=== PATIENT | female | born 1950 | race American Indian/Alaskan Native ===

== ENCOUNTER 2016-09-16 06:29 | Day surgery (SDC) | payer MEDICARE, OTHER ==
[2016-09-16] MEDS ORDERED: ECOTRIN PO ONE ×2 (06:57→07:03)
[2016-09-16] MEDS ORDERED: NACL 0.9% 500 ML 500 ML IV SCH (07:00)
[2016-09-16] MEDS ORDERED: NACL 0.9% 500 ML 500 ML ONE (07:01)
[2016-09-16 07:46] LABS: Basophils % (Auto) 0.3 % (0.0-1.8); Hematocrit 42.3 % (30.3-42.9); Mean Corpuscular HGB Conc 33 % (30-34); Mean Corpuscular Hemoglobin 28 pg (28-32); Mean Corpuscular Volume 85 fl (79-97); Platelet Count 268 K/mm3 (140-440); Red Blood Count 4.98 M/mm3 (3.65-5.03); Red Cell Distribution Width 13.5 % (13.2-15.2); White Blood Count 6.7 K/mm3 (4.5-11.0)
[2016-09-16 07:56] LABS: INR 0.91 (0.87-1.13)
[2016-09-16 07:57] LABS: Anion Gap 16 mmol/L; BUN/Creatinine Ratio 33.33; Blood Urea Nitrogen 20 mg/dL (7-17); Calcium 9.8 mg/dL (8.4-10.2); Carbon Dioxide 26 mmol/L (22-30); Chloride 100.1 mmol/L (98-107); Glucose 147 mg/dL (65-100); Potassium 4.3 mmol/L (3.6-5.0); Sodium 138 mmol/L (137-145)
[2016-09-16] MEDS ORDERED: HEPARIN/NS 5000 UNIT/500ML(CATH LAB) 1,000 ML IR ONE (08:16)
[2016-09-16] MEDS ORDERED: XYLOCAINE 2% INFILTRATI ONE (08:16)
[2016-09-16] MEDS: CALAN ONE ×2 (08:58→09:05)
[2016-09-16] MEDS: HEPARIN 10,000 UNITS/10 ML ONE ×2 (08:59→09:05)
[2016-09-16] MEDS: SUBLIMAZE ONE ×2 (08:59→09:12)
[2016-09-16] MEDS: VERSED ONE ×2 (08:59→09:12)
--- NOTE | 2016-09-16 10:06 | Cardiac Catherization Report ---
CARDIAC CATHETERIZATION CLINICAL INFORMATION: The patient is a 66-year-old -[place] female with history of bilateral pulmonary artery branch stenting in 2010, also left upper pulmonary vein stenting in 2012 for stenosis, is scheduled for cardiac catheterization because of persistent chest pain in spite of negative nuclear imaging. The patient is aware of the procedure, potential complications, and alternatives of therapy available. DESCRIPTION OF PROCEDURE: The patient was brought to the catheterization laboratory in a fasting condition. The right wrist area and forearm thoroughly cleansed with Betadine solution and sterile drapes were applied. Local anesthesia was achieved using 2% Xylocaine. Right radial artery puncture was made using 21-gauge arterial puncture needle. Subsequently, 5-Belarusian sheath was introduced. Received 5 mg of intra-arterial verapamil and 3000 units of intravenous heparin. A 5-Belarusian multipurpose catheter was used to obtain the angiograms of the right coronary artery and left ventriculogram done in VALENCIA projection using hand injection. Subsequently, 5-Belarusian TIG catheter was used for obtaining the angiograms of the left coronary artery. At the end of the procedure, catheter and sheaths removed. Good hemostasis was achieved. No untoward complications were noted. The patient tolerated the procedure well. Good hemostasis was achieved with pressure bandage. Following findings were noted. HEMODYNAMICS: Opening aortic pressure 141/70, left ventricular pressure 141/17, no gradient across the aortic valve. Estimated ejection fraction 65%. Left ventriculogram done in VALENCIA projection using hand injection showed normal sized left ventricle with normal contractility. Mitral regurgitation could not be evaluated because of limited amount of dye. Right coronary artery dominant vessel arises normally from right coronary cusp. Angiographically smooth and normal. Left coronary artery arises normally from left coronary cusp. Left main long, smooth and normal. LAD, which curves around the apex and its branches and circumflex artery nondominant vessel and its branches are angiographically smooth and normal. FINAL IMPRESSION: Normal sized left ventricle with normal contractility, essentially normal coronary angiography. At this time, etiology of her chest pain is not clear. Stents were noted in the right pulmonary artery and left pulmonary artery branches and also left upper pulmonary vein area. The patient tolerated the procedure well. No untoward complications noted. The patient will be continued on risk factor modification. Findings were explained to the patient and family. [facility]# [id number] EBER/JARVIS ARNOLD
--- NOTE | 2016-09-16 10:57 | Short Stay Summary ---
Short Stay Documentation Date of service: 09/16/16 - History H&P: obtained from office - Allergies and Medications Current Medications: Allergies acetaminophen [From Lortab] Allergy (Verified 02/21/15 11:14) Itching codeine Allergy (Verified 02/19/15 04:27) Itching diphenhydramine HCl [From Benadryl] Allergy (Verified 02/19/15 04:27) Itching hydrocodone bitartrate [From Lortab] Allergy (Verified 02/21/15 11:14) Itching Penicillins Allergy (Verified 02/19/15 04:27) Itching Sulfa (Sulfonamide Antibiotics) Allergy (Verified 02/19/15 04:27) Itching benzonatate Adverse Reaction (Unverified 09/16/16 06:31) Itching hydromorphone Adverse Reaction (Verified 02/20/15 14:31) Itching IV CONTRAST DYE Allergy (Uncoded 02/19/15 01:07) Itching Home Medications Medication Instructions Recorded Confirmed Last Taken Type Alendronate Sodium [Fosamax] 70 mg PO Th tablet 09/29/15 09/16/16 09/10/16 Rx Clopidogrel [Plavix] 75 mg PO DAILY tablet 09/29/15 09/16/16 09/16/16 06:30 Rx Hydrocortisone 0.5% 1 applic TP BID tube 09/29/15 09/16/16 09/15/16 Rx [Hydrocortisone 0.5% CREAM] Ipratropium/Albuterol Sulfate 1 spray IH QID #1 mist.inhal 09/29/15 09/16/16 Rx [Combivent Respimat] Losartan [Cozaar] 100 mg PO QDAY tablet 09/29/15 09/16/16 09/16/16 06:30 Rx Potassium Chloride [K-Dur] 40 meq PO BID tablet 09/29/15 09/16/16 09/15/16 Rx Temazepam [Restoril] 30 mg PO QHS capsule 09/29/15 09/16/16 09/15/16 Rx Adult Probiotic 1 tab PO DAILY 09/16/16 09/16/16 09/15/16 History Calcium 600-Vit D3 800 Tablet 1 tab PO DAILY 09/16/16 09/16/16 09/15/16 History Complete Formulation Multivit 1 tab PO DAILY 09/16/16 09/16/16 09/15/16 History Diclofenac Sodium [Diclofenac 75 mg PO BID 09/16/16 09/16/16 09/15/16 History Sodium] 75mg Pantoprazole Sodium [Pantoprazole 40 mg PO DAILY 09/16/16 09/16/16 09/15/16 History Sodium] Pepcid 20 mg PO PREOP 09/16/16 09/16/16 09/16/16 History Phenergan TAB 12.5 mg PO PREOP 09/16/16 09/16/16 09/15/16 History Pravastatin Sodium [Pravastatin 20 mg PO DAILY 09/16/16 09/16/16 09/15/16 History Sodium] methylPREDNISolone [Medrol] 4 mg PO PREOP 09/16/16 09/16/16 09/16/16 06:30 History Active Medications Sodium Chloride (Nacl 0.9% 500 Ml) 500 mls @ 50 mls/hr IV DIRECT ALETHEA Stop: 09/16/16 16:59 Last Admin: 09/16/16 07:30 Dose: 50 mls/hr - Brief post op/procedure progress note Date of procedure: 09/16/16 Pre-op diagnosis: chest pain Procedure: left heart cath - Hospital course Hospital course: Please see dictated cath report. - Disposition Condition at discharge: Stable Disposition: DISCHARGED TO HOME OR SELFCARE - Discharge Diagnoses (1) Chest pain Status: Acute Qualifiers: Chest pain type: C (2) Pulmonary artery stenosis Status: Chronic (3) Hypertension Status: Chronic Qualifiers: Hypertension type: H (4) Hyperlipidemia Status: Chronic Qualifiers: Hyperlipidemia type: H Short Stay Discharge Plan Activity: advance as tolerated Weight Bearing Status: Weight Bear as Tolerated Wound: keep clean and dry Follow up with: NEEMA YOUNG MD [Primary Care Provider] - 7 Days Forms: CardCath PCI D/C Instructions
[2016-09-16 12:29] VITALS: BP 151/81
== END 2016-09-16 12:20 | disposition home or self-care (01) ==
LOC: OPU 06:29
PROVIDERS: ATTEND Internal Medicine
DX: R07.9 Chest pain, unspecified (principal); K21.9 Gastro-esophageal reflux disease without esophagitis; E78.5 Hyperlipidemia, unspecified; I10 Essential (primary) hypertension; H54.8 Legal blindness, as defined in USA; Z79.899 Other long term (current) drug therapy; Z82.49 Family history of ischemic heart disease and other diseases of the circulatory system; Z87.09 Personal history of other diseases of the respiratory system; Z96.89 Presence of other specified functional implants
CPT/HCPCS: 36415; 80048; 85025; 85610; 85730; 93005; 93010; 93458; C1887; C1894; J1644; J2250; J3010; J7040; Q9967

== ENCOUNTER 2017-03-04 09:53 | Outpatient (CLI) | payer MEDICARE ==
--- NOTE | 2017-03-04 10:50 | Mammography Report ---
BILATERAL MAMMOGRAM: FINDINGS: There are scattered fibroglandular densities (approximately 25%-50% glandular). No mass, distortion, suspicious calcification, or skin change is seen. There is no significant change when compared to prior exams dating back to October 2014. CAD was utilized. IMPRESSION: Negative mammogram. There is no mammographic evidence of malignancy. RECOMMENDATION: Follow-up per ACS guidelines. BI-RADS CATEGORY: 1 = Negative ACR BI-RADS MAMMOGRAPHIC CODES: 0 = Needs additional imaging evaluation; 1 = Negative; 2 = Benign; 3 = Probably benign; 4 = Suspicious; 5 = Malignant; 6 = Known biopsy-proven malignancy COMMENT: 1. Dense breast tissue, i.e., adenosis, fibrocystic changes, etc., may obscure an underlying neoplasm. 2. Approximately 10% of cancers are not detected with mammography. 3. A negative mammography report should not delay biopsy if a clinically suspicious mass is present. COMMENT: Patient follow-up letters are generated in [employer].
== END 2017-03-04 09:54 | disposition home or self-care (01) ==
LOC: MAMMO 09:53
PROVIDERS: ATTEND Family Medicine
DX: Z12.31 Encounter for screening mammogram for malignant neoplasm of breast (principal); I10 Essential (primary) hypertension; I25.10 Atherosclerotic heart disease of native coronary artery without angina pectoris; J44.1 Chronic obstructive pulmonary disease with (acute) exacerbation
CPT/HCPCS: 77067; G0202

== ENCOUNTER 2018-03-14 08:19 | Outpatient (CLI) | payer MEDICARE ==
--- NOTE | 2018-03-14 09:54 | Mammography Report ---
BILATERAL DIGITAL SCREENING MAMMOGRAM with CAD : 03/14/18 08:19:00 CLINICAL: Routine screening. COMPARISON:03/04/17 FINDINGS: The breasts are heterogeneously dense, which may obscure small masses. No mass, architectural distortion or suspicious calcifications. IMPRESSION: No mammographic evidence of malignancy. BI-RADS CATEGORY: 2 -- Benign RECOMMENDATION: Routine mammographic screening in one year. COMMENT: Patient follow-up letters are generated by our [employer] application.
--- NOTE | 2018-03-14 09:59 | Mammography Report ---
BONE DEXA:03/14/18 10:00:00 CLINICAL: Postmenopausal COMPARISON: 10/24/14 TECHNIQUE: Two site bone DEXA performed on an Hologic scanner. FINDINGS: The average BMD of the lumbar spine L1-L4 is 0.985g/cm squared with a T-score =-0.6 and a Z score = +0.8. This compares to 0.940 g/cm squared on the last exam and represents a +4.8% change in BMD. The average BMD of the left hip is 0.799g/cm squared with a T-score =-1.2 and a Z score = -0.4.This compares to 0.795g/cm squared on the last exam and represents a +0.6% change in BMD. IMPRESSION: 1. WHO classification: Normal with average fracture risk based on lumbar spine measurements. A moderate increase in spine BMD compared to baseline. 2. WHO classification: Osteopenia with increased fracture risk based on left hip measurements. A slight improvement in left hip BMD compared to baseline. 3. The FRAX 10 year fracture probability for a major osteoporotic fracture is 4.2%. 4. The FRAX 10 year fracture probability for hip fracture is 0.5%. Note: FRAX version 3.01. Fracture probability calculated for an untreated patient. Fracture probability may be lower if the patient has received treatment. RECOMMENDATION: Clinical correlation and routine screening. DEFINITIONS: BMD = Bone Mineral Density T-score = BMD related to mean peak bone mass of young adult (mean expressed in Standard Deviation) Z-score = Age matched BMD expressed in SD World Health Organization (WHO) Diagnostic Criteria Normal T-score > -1 SD Osteopenia T-score between -1 and -2.4 SD Osteoporosis T-score -2.5 SD or below NOTE: BMD is not the only risk factor for fracture; also consider factors such as the patient's age, risk of falling, previous osteoporotic fracture, family history of osteoporotic fractures, current smoker, and low body weight. All treatment decisions require clinical judgment and consideration of individual patient factors, including patient preferences, comorbidities, previous drug use and wrist factors not captured in the FRAX model (e.g. frailty, falls, vitamin D deficiency, increased bone turnover, interval significant decline in BMD). Z-scores are not calculated if >80 years of age.
== END 2018-03-14 08:20 | disposition home or self-care (01) ==
LOC: MAMMO 08:19
PROVIDERS: ATTEND Family Medicine
DX: Z12.31 Encounter for screening mammogram for malignant neoplasm of breast (principal); Z13.820 Encounter for screening for osteoporosis; I10 Essential (primary) hypertension; M85.88 Other specified disorders of bone density and structure, other site; J44.1 Chronic obstructive pulmonary disease with (acute) exacerbation; E78.5 Hyperlipidemia, unspecified; I25.10 Atherosclerotic heart disease of native coronary artery without angina pectoris; K21.9 Gastro-esophageal reflux disease without esophagitis; E66.9 Obesity, unspecified; M19.90 Unspecified osteoarthritis, unspecified site; F17.210 Nicotine dependence, cigarettes, uncomplicated; Z78.0 Asymptomatic menopausal state; Z90.49 Acquired absence of other specified parts of digestive tract
CPT/HCPCS: 77067; 77080

== ENCOUNTER 2019-03-15 09:37 | Outpatient (CLI) | payer MEDICARE ==
--- NOTE | 2019-03-16 08:58 | Mammography Report ---
DIGITAL SCREENING MAMMOGRAM WITH CAD, 03/15/2019 INDICATION: Routine screening mammography. TECHNIQUE: Digital bilateral 2D mammography was obtained in the craniocaudal and mediolateral obliq ue projections. This examination was interpreted with the benefit of Computer-Aided Detection analysi s. COMPARISON: 03/14/2018 FINDINGS: Breast Density: There are scattered areas of fibroglandular density. There is no evidence of dominant mass, suspicious calcifications or architectural distortion in eithe r breast. Right benign calcifications. IMPRESSION: No mammographic evidence of malignancy. Recommend routine mammographic screening. Follow up recommendation: Routine yearly BI-RADS Category 2: Benign. A "normal" or negative report should not discourage follow up or biopsy of a clinically significant f inding. A written summary of these findings will be mailed to the patient. The patient will be entered into a mammography reporting system which will generate a reminder letter for the patient's next appointmen t at the appropriate interval. The [employer] recommends yearly mammograms starting at age 40 and continuing as l chaparrita as a woman is in good health. Breast MRI is recommended for women with an approximate 20-25% or greater lifetime risk of breast cancer, including women with a strong family history of breast or ova phoebe cancer or who have been treated for Hodgkin's disease. Signer Name: Olivier Strickland MD Signed: 03/16/2019 8:54 AM Workstation Name: [id number]
== END 2019-03-15 09:38 | disposition home or self-care (01) ==
LOC: MAMMO 09:37
DX: Z12.31 Encounter for screening mammogram for malignant neoplasm of breast (principal); K21.9 Gastro-esophageal reflux disease without esophagitis; I10 Essential (primary) hypertension
CPT/HCPCS: 77067

== ENCOUNTER 2020-03-20 09:46 | Outpatient (CLI) | payer MEDICARE ==
--- NOTE | 2020-03-20 12:27 | Mammography Report ---
BILATERAL DIGITAL SCREENING MAMMOGRAM WITH CAD HISTORY: SCREENING MAMMO TECHNIQUE: Routine digital mammographic imaging performed. This examination was interpreted with evonne miller benefit of Computer-aided Detection analysis. COMPARISON: 03/15/2019, 03/14/2018, 03/04/2017. FINDINGS: Breast Density: scattered fibroglandular appearance of the breast tissue. Digital CC and MLO views demonstrate no mammographic evidence of malignancy. Stable benign right je ast calcifications. IMPRESSION: No mammographic evidence of malignancy. If the clinical examination remains stable, recommend bilate ral mammogram in approximately one year. BIRADS 2: Benign Finding(s). FURTHER INFORMATION: According to the [employer], yearly mammograms are recommend ed starting at age 40 and continuing as long as a woman is in good health. Clinical Breast Exams shou ld be part of a periodic health exam-about every 3 years for women in their 20s and 30s and every yea r for women 40 and over. Breast self exam is an option for women starting in their 20s. Any breast ch inez noted on a breast self exam should be reported promptly to the patient's healthcare provider. Br east MRI is recommended for women with an approximately 20-25% or greater lifetime risk of breast can cer, including women with a strong family history of breast or ovarian cancer and women who have been treated for Hodgkin's disease. A negative Mammography report should not discourage follow up or biopsy of a clinically significant f inding and/or abnormality. Dense breast tissue may obscure small neoplasms. The patient will be entered into a reminder system with a target due date for the next screening mamm ogram. Signer Name: Luther Peters MD Signed: 03/20/2020 12:23 PM Workstation Name: [id number]
== END 2020-03-20 09:47 | disposition home or self-care (01) ==
LOC: MAMMO 09:46
PROVIDERS: ATTEND Internal Medicine
DX: Z12.31 Encounter for screening mammogram for malignant neoplasm of breast (principal)
CPT/HCPCS: 77067

== ENCOUNTER 2020-09-18 14:58 | Emergency (ER) | payer MEDICARE ==
[2020-09-18] MEDS ORDERED: IBUPROFEN 800 MG TAB PO ONE (15:29)
[2020-09-18 16:14] LABS: Basophils # (Auto) 0.1 K/mm3 (0.0-0.1); Eosinophils % (Auto) 0.3 % (0.0-4.3); Hematocrit 42.8 % (30.3-42.9); Hemoglobin 14.5 gm/dl (10.1-14.3); Lymphocytes # (Auto) 0.8 K/mm3 (1.2-5.4); Lymphocytes % (Auto) 14.2 % (13.4-35.0); Mean Corpuscular HGB Conc 34 % (30-34); Mean Corpuscular Volume 85 fl (79-97); Monocytes # (Auto) 0.9 K/mm3 (0.0-0.8); Monocytes % (Auto) 15.9 % (0.0-7.3); Platelet Count 271 K/mm3 (140-440); Red Blood Count 5.03 M/mm3 (3.65-5.03); Red Cell Distribution Width 13.6 % (13.2-15.2)
--- NOTE | 2020-09-18 16:22 | XRay Report ---
CHEST 1 VIEW INDICATION: cough. COMPARISON: 09/26/2015 FINDINGS: SUPPORT DEVICES: None. HEART: Within normal limits. Vascular stents are noted. LUNGS/PLEURA: No acute air space or interstitial disease. ADDITIONAL FINDINGS: None. IMPRESSION: 1. No acute findings. Signer Name: Ehsan Diamond MD Signed: 09/18/2020 4:17 PM Workstation Name: [id number]
[2020-09-18 16:58] LABS: BUN/Creatinine Ratio 13; Blood Urea Nitrogen 10 mg/dL (7-17); Calcium 9.4 mg/dL (8.4-10.2); Hemolysis Index 32
[2020-09-18 17:23] LABS: Bilirubin,Urine NEG (Negative); Blood,Urine NEG (Negative); Color,Urine Straw (Yellow); Mucus,Urine FEW /HPF; Protein,Urine <15 mg/dL mg/dL (Negative); Urobilinogen,Urine < 2.0 mg/dL (<2.0); WBC,Urine < 1.0 /HPF (0.0-6.0)
--- NOTE | 2020-09-18 18:06 | Emergency Department Report ---
ED Back Pain/Injury HPI - General Chief Complaint: Back Pain/Injury Stated Complaint: CHEST PAIN Time Seen by Provider: 09/18/20 15:27 Source: EMS Limitations: Other - History of Present Illness Initial Comments: Patient is a 70-year-old F [place] female who is presenting with back pain. She states his mid back along the bra line. States she also has a cough that has developed over the last day. Back pain is been constant for the last week. Patient denies any trauma or falls. States that she does have a squeezing type sensation and feels smothered. Denies any body other body aches. States is been no nausea vomiting or diarrhea. - Related Data Home Medications Medication Instructions Recorded Confirmed Last Taken Adult Probiotic 1 tab PO DAILY 09/16/16 09/16/16 09/15/16 Calcium 600-Vit D3 800 Tablet 1 tab PO DAILY 09/16/16 09/16/16 09/15/16 Complete Formulation Multivit 1 tab PO DAILY 09/16/16 09/16/16 09/15/16 Diclofenac Sodium 75 mg PO BID 09/16/16 09/16/16 09/15/16 75 mg Pantoprazole Sodium 40 mg PO DAILY 09/16/16 09/16/16 09/15/16 Pepcid 20 mg PO PREOP 09/16/16 09/16/16 09/16/16 Phenergan TAB 12.5 mg PO PREOP 09/16/16 09/16/16 09/15/16 Pravastatin Sodium 20 mg PO DAILY 09/16/16 09/16/16 09/15/16 methylPREDNISolone [Medrol] 4 mg PO PREOP 09/16/16 09/16/16 09/16/16 06:30 Previous Rx's Medication Instructions Recorded Last Taken Type Alendronate Sodium [Fosamax] 70 mg PO Th tablet 09/29/15 09/10/16 Rx Clopidogrel [Plavix] 75 mg PO DAILY tablet 09/29/15 09/16/16 06:30 Rx Hydrocortisone 0.5% 1 applic TP BID tube 09/29/15 09/15/16 Rx [Hydrocortisone 0.5% CREAM] Ipratropium/Albuterol Sulfate 1 spray IH QID #1 mist.inhal 09/29/15 09/15/16 Rx [Combivent Respimat] Losartan [Cozaar] 100 mg PO QDAY tablet 09/29/15 09/16/16 06:30 Rx Potassium Chloride [K-Dur] 40 meq PO BID tablet 09/29/15 09/15/16 Rx Temazepam [Restoril] 30 mg PO QHS capsule 09/29/15 09/15/16 Rx Albuterol Mdi (or & Nicu Only) 2 puff IH QID PRN #1 inhalation 09/18/20 Unknown Rx [ProAir HFA Inhaler] Azithromycin [Zithromax Z-MILES] 250 mg PO DAILY #6 tablet 09/18/20 Unknown Rx methylPREDNISolone [Medrol 4MG 4 mg PO DAILY #1 tab.ds.pk 09/18/20 Unknown Rx DOSEPAK (21 tabs)] Allergies Allergy/AdvReac Type Severity Reaction Status Date / Time acetaminophen [From Lortab] Allergy Itching Verified 02/21/15 11:14 codeine Allergy Itching Verified 02/19/15 04:27 diphenhydramine HCl Allergy Itching Verified 02/19/15 04:27 [From Benadryl] hydrocodone bitartrate Allergy Itching Verified 02/21/15 11:14 [From Lortab] Penicillins Allergy Itching Verified 02/19/15 04:27 Sulfa (Sulfonamide Allergy Itching Verified 02/19/15 04:27 Antibiotics) benzonatate AdvReac Itching Unverified 09/16/16 06:31 hydromorphone AdvReac Itching Verified 02/20/15 14:31 IV CONTRAST DYE Allergy Itching Uncoded 02/19/15 01:07 ED Review of Systems ROS: Stated complaint: CHEST PAIN Other details as noted in HPI Comment: All other systems reviewed and negative ED Past Medical Hx - Past Medical History Hx Hypertension: Yes Hx GERD: Yes Hx Sickle Cell Disease: No Hx Arthritis: Yes Hx Seizures: No Hx Asthma: No Hx COPD: No Hx HIV: No Additional medical history: sarcoidosis, legally blind - Surgical History Hx Pacemaker: No Hx Internal Defibrillator: No Hx Cholecystectomy: Yes (FEB 2015) Additional Surgical History: FEB - Social History Smoking Status: Never Smoker Substance Use Type: None - Medications Home Medications: Home Medications Medication Instructions Recorded Confirmed Last Taken Type Alendronate Sodium [Fosamax] 70 mg PO Th tablet 09/29/15 09/16/16 09/10/16 Rx Clopidogrel [Plavix] 75 mg PO DAILY tablet 09/29/15 09/16/16 09/16/16 06:30 Rx Hydrocortisone 0.5% 1 applic TP BID tube 09/29/15 09/16/16 09/15/16 Rx [Hydrocortisone 0.5% CREAM] Ipratropium/Albuterol Sulfate 1 spray IH QID #1 mist.inhal 09/29/15 09/16/16 09/15/16 Rx [Combivent Respimat] Losartan [Cozaar] 100 mg PO QDAY tablet 09/29/15 09/16/16 09/16/16 06:30 Rx Potassium Chloride [K-Dur] 40 meq PO BID tablet 09/29/15 09/16/16 09/15/16 Rx Temazepam [Restoril] 30 mg PO QHS capsule 09/29/15 09/16/16 09/15/16 Rx Adult Probiotic 1 tab PO DAILY 09/16/16 09/16/16 09/15/16 History Calcium 600-Vit D3 800 Tablet 1 tab PO DAILY 09/16/16 09/16/16 09/15/16 History Complete Formulation Multivit 1 tab PO DAILY 09/16/16 09/16/16 09/15/16 History Diclofenac Sodium 75 mg PO BID 09/16/16 09/16/16 09/15/16 History 75 mg Pantoprazole Sodium 40 mg PO DAILY 09/16/16 09/16/16 09/15/16 History Pepcid 20 mg PO PREOP 09/16/16 09/16/16 09/16/16 History Phenergan TAB 12.5 mg PO PREOP 09/16/16 09/16/16 09/15/16 History Pravastatin Sodium 20 mg PO DAILY 09/16/16 09/16/16 09/15/16 History methylPREDNISolone [Medrol] 4 mg PO PREOP 09/16/16 09/16/16 09/16/16 06:30 History Albuterol Mdi (or & Nicu Only) 2 puff IH QID PRN #1 inhalation 09/18/20 Unknown Rx [ProAir HFA Inhaler] Azithromycin [Zithromax Z-MILES] 250 mg PO DAILY #6 tablet 09/18/20 Unknown Rx methylPREDNISolone [Medrol 4MG 4 mg PO DAILY #1 tab.ds.pk 09/18/20 Unknown Rx DOSEPAK (21 tabs)] ED Physical Exam - General Limitations: Other General appearance: alert, in no apparent distress - Head Head exam: Present: atraumatic, normocephalic - Eye Eye exam: Present: normal appearance - ENT ENT exam: Present: mucous membranes moist - Neck Neck exam: Present: normal inspection - Respiratory Respiratory exam: Present: rhonchi. Absent: normal lung sounds bilaterally, respiratory distress, wheezes, rales - Cardiovascular Cardiovascular Exam: Present: regular rate, normal rhythm, normal heart sounds. Absent: systolic murmur, diastolic murmur, rubs, gallop - GI/Abdominal GI/Abdominal exam: Present: soft, normal bowel sounds. Absent: distended, tenderness, guarding - Extremities Exam Extremities exam: Present: normal inspection - Back Exam Back exam: Present: normal inspection - Neurological Exam Neurological exam: Present: alert, oriented X3 - Psychiatric Psychiatric exam: Present: normal affect, normal mood - Skin Skin exam: Present: warm, dry, intact, normal color. Absent: rash ED Course Vital Signs 09/18/20 17:20 Pulse Rate 84 Respiratory 16 Rate Blood Pressure 112/58 [Left] O2 Sat by Pulse 100 Oximetry ED Medical Decision Making - Lab Data Result diagrams: 09/18/20 15:56 09/18/20 15:56 Lab Results 09/18/20 09/18/20 09/18/20 Range/Units 15:56 15:56 Unknown WBC 5.6 (4.5-11.0) K/mm3 RBC 5.03 (3.65-5.03) M/mm3 Hgb 14.5 H (10.1-14.3) gm/dl Hct 42.8 (30.3-42.9) % MCV 85 (79-97) fl MCH 29 (28-32) pg MCHC 34 (30-34) % RDW 13.6 (13.2-15.2) % Plt Count 271 (140-440) K/mm3 Lymph % (Auto) 14.2 (13.4-35.0) % [place] % (Auto) 15.9 H (0.0-7.3) % Eos % (Auto) 0.3 (0.0-4.3) % Baso % (Auto) 1.0 (0.0-1.8) % Lymph # (Auto) 0.8 L (1.2-5.4) K/mm3 [place] # (Auto) 0.9 H (0.0-0.8) K/mm3 Eos # (Auto) 0.0 (0.0-0.4) K/mm3 Baso # (Auto) 0.1 (0.0-0.1) K/mm3 Seg Neutrophils % 68.6 (40.0-70.0) % Seg Neutrophils # 3.9 (1.8-7.7) K/mm3 Sodium 138 (137-145) mmol/L Potassium 3.9 (3.6-5.0) mmol/L Chloride 100.2 (98-107) mmol/L Carbon Dioxide 23 (22-30) mmol/L Anion Gap 19 mmol/L BUN 10 (7-17) mg/dL Creatinine 0.8 (0.6-1.2) mg/dL Estimated GFR > 60 ml/min BUN/Creatinine Ratio 13 % Glucose 104 H (65-100) mg/dL Calcium 9.4 (8.4-10.2) mg/dL Urine Color Straw (Yellow) Urine Turbidity Clear (Clear) Urine pH 8.0 H (5.0-7.0) Ur Specific [place] 1.005 (1.003-1.030) Urine Protein <15 mg/dl (Negative) mg/dL Urine Glucose (UA) Neg (Negative) mg/dL Urine Ketones Neg (Negative) mg/dL Urine Blood Neg (Negative) Urine Nitrite Neg (Negative) Urine Bilirubin Neg (Negative) Urine Urobilinogen < 2.0 (<2.0) mg/dL Ur Leukocyte Esterase Tr (Negative) Urine WBC (Auto) < 1.0 (0.0-6.0) /HPF Urine RBC (Auto) 2.0 (0.0-6.0) /HPF U Epithel Cells (Auto) 10.0 (0-13.0) /HPF Urine Mucus Few /HPF - Radiology Data CXR WNL Critical care attestation.: If time is entered above; I have spent that time in minutes in the direct care of this critically ill patient, excluding procedure time. ED Disposition Clinical Impression: COPD (chronic obstructive pulmonary disease), Acute bronchitis, Suspected COVID-19 virus infection, Chronic back pain Disposition: TO HOME OR SELFCARE Is pt being admited?: No Does the pt Need Aspirin: No Condition: Stable Instructions: Chronic Obstructive Pulmonary Disease (ED), Acute Bronchitis (ED), Cough, Adult, [id number], What You Need to Know About Chronic Back Pain Referrals: NABIL JACKSON MD [Primary Care Provider] - 3-5 Days Time of Disposition: 18:04
[2020-09-18 18:16] VITALS: BP 141/77
== END 2020-09-18 18:21 | disposition home or self-care (01) ==
LOC: ED 14:58
DX: J44.9 Chronic obstructive pulmonary disease, unspecified (principal); J20.9 Acute bronchitis, unspecified; M54.9 Dorsalgia, unspecified; G89.29 Other chronic pain; Z20.822 Contact with and (suspected) exposure to COVID-19; I10 Essential (primary) hypertension; K21.9 Gastro-esophageal reflux disease without esophagitis; M19.90 Unspecified osteoarthritis, unspecified site; Z90.49 Acquired absence of other specified parts of digestive tract; Z79.899 Other long term (current) drug therapy; Z88.8 Allergy status to other drugs, medicaments and biological substances
CPT/HCPCS: 36415; 71045; 80048; 81001; 85025